=== PATIENT | male | born 1985 | race Caucasian/White ===

== ENCOUNTER 2022-03-05 14:12 | Emergency (ER) | payer OTHER ==
[~2022-03-05] VITALS: Ht 170.2 cm; Wt 108.9 kg
[~2022-03-05 14:12] MED LIST: TESSALON PERLE100 MG; [UNRECOGNIZED DRUG - OTHER]
== END 2022-03-05 19:24 | disposition home or self-care (01) ==
LOC: ER 14:12
DX: S01.81XA Laceration without foreign body of other part of head, initial encounter (principal); W45.8XXA Other foreign body or object entering through skin, initial encounter; Y93.89 Activity, other specified; Y92.89 Other specified places as the place of occurrence of the external cause; Y99.8 Other external cause status